=== PATIENT | female | born 1985 | race Caucasian/White ===

== ENCOUNTER → 2024-10-13 | Outpatient (CLI) | payer OTHER ==
[2024-10-13 07:27] VITALS: BP 114/69; PULSE 84; RESP 16; TEMP 97.6
--- NOTE | 2024-10-13 08:16 | P.GSCN ---
History of Present Illness Consult date: 10/13/24 Reason for Consult: Mass right breast Requesting physician: Leonora Mae History of present illness: Luli is a 39-year-old female seen in consultation for Leonora Mae mass in the right breast. She states that the lump occurred approximately 4 years ago. Initially it was painless and in 2019 began to slowly get harder. She stated that she had discussed it with her ADAPTIVE PHYSICAL EDUCATOR and was told to watch it. Within a short period of time now it has become swollen, bruised, and painful. She denied any fever, purulent drainage or swollen glands. She is breast-feeding her 3-year-old twice daily, stopped two days ago. She denied any attempts to drain or pop the lesion. She had an ultrasound done of the lump but none of her breast on 10-06-24.Showed a 1.9 x 1.2 cm round heterogeneous hypoechoic lesion with through-transmission which appeared to involve the skin surface. It was suspected this was an inflamed lesion such as a sebaceous cyst. This was categorized as a BI-RADS 3 and a repeat ultrasound in 2 months was recommended. She just finished a course of antibiotics Bactrim double strength 800 twice daily, and she received a shot of ceftriaxone in her primary care doctor's office on . Since that time the tenderness has decreased. She stopped breast feeding two days ago. She denies any fever or chills. No surgery of her breast in the past. She has not had any surgery on her bresat. No recent trauma to breast. nicotine: stopped 10 years ago, used to smoke 1/3 PPD for about 5 years Caffeine: none Chocolate: daily control pills: none Hormones: none Primary care physician 10/05/24 note reviewed Family history: Mother: Colon cancer Maternal grandmother: HPV throat cancer Hormonal history: menarche: 14 A1 age at first : 36, breast fed: yes periods regular Surgical History: Medical HIstory: none Social History: nicoetine: none alcohol: none drugs: none Review of Systems - Constitutional Denies fever, Denies weight loss - EENT Eyes: denies blurred vision Ears: deny: decreased hearing, tinnitus Ears, nose, mouth and throat: Denies dysphagia - Breasts bilateral: as per HPI - Cardiovascular Denies chest pain, Denies shortness of breath - Respiratory Denies cough, Denies 7 - Gastrointestinal Reports as per HPI - Genitourinary Genitourinary: Denies dysuria, Denies hematuria Menstruation: Reports period normal - Musculoskeletal Reports as per HPI - Integumentary Denies rash, Denies unusual bruising - Neurological Denies headaches, Denies syncope - Psychiatric Reports as per HPI - Endocrine Reports as per HPI - Hematologic/Lymphatic Denies easy bleeding, Denies easy bruising - Allergic/Immunologic Reports as per HPI Past Medical History Past Medical History: No Reported History History of Any Multi-Drug Resistant Organisms: None Reported Past Surgical History: Section Past Anesthesia/Blood Transfusion Reactions: No Reported Reaction Past Psychological History: No Psychological Hx Reported Smoking Status: Former smoker Past Alcohol Use History: None Reported Past Drug Use History: None Reported Medications and Allergies Home Medications Medication Instructions Recorded Confirmed Type L.acidoph,Paracasei, B.lactis 1 cap PO DAILY 10/13/24 10/13/24 History [Probiotic] Allergies Allergy/AdvReac Type Severity Reaction Status Date / Time No Known Allergies Allergy Unverified 10/13/24 07:23 Surgical - Exam Vital Signs Temp Pulse Resp BP Pulse Ox 97.6 F 84 16 114/69 100 10/13/24 07:24 10/13/24 07:24 10/13/24 07:24 10/13/24 07:24 10/13/24 07:24 - General moderate distress - Eyes normal ocular movement - ENT no hearing loss - Neck trachea midline - Respiratory normal respiratory effort, clear to auscultation - Cardiovascular Rhythm: regular Heart Sounds: normal: S1, S2 - Abdomen Abdomen: soft, non tender, no guarding, no rigid, no rebound - Musculoskeletal normal gait - Psychiatric oriented to time, oriented to person, oriented to place, speech is normal, memory intact Breast Exam: BRA: small sports bra inspection: Erythema/lesion right breast upper chest wall area, area of erythema measures 7cm x 4-1/2 cm palpation: right breast: Positional exam fibrocystic changes, erythematous swollen area right upper quadrant 7 cm x 4-1/2 cm fluctuant in nature superficial, no other masses or nodules of concern right axilla: No adenopathy of concern Left breast: Multi positional exam fibrocystic changes no dominant masses or nodules of concern Left axilla: No adenopathy of concern Results Probable infected sebaceous cyst right breast upper outer quadrant area Ultrasound of the area of concern is personally reviewed, consistent with a superficial lesion probable infected sebaceous cyst Assessment and Plan Assessment: Impression: Probable infected sebaceous cyst right breast upper outer quadrant Fibrocystic breast changes Recent we stopped breast-feeding Plan: I&D of area of concern right breast Continue antibiotics CC: Leonora Mae
== END ==
LOC: WWCWWP 06:58
PROVIDERS: ATTEND Surgery
DX: N60.19 Diffuse cystic mastopathy of unspecified breast (principal)
CPT/HCPCS: 87070; 87075; 87205

== ENCOUNTER → 2024-10-17 | Outpatient (CLI) | payer OTHER ==
[2024-10-17 07:53] VITALS: BP 108/72; PULSE 89; RESP 16; TEMP 98.7
--- NOTE | 2024-10-17 08:42 | P.PN ---
Subjective Progress Note Date: 10/17/24 Principal diagnosis: Abscess right breast Patient is status post I&D abscess right breast last week. She presents today to have this area evaluated. She has had no fever or chills. She has minimal drainage. The packing amount is decreased. Objective - Vital Signs Vital signs: Vital Signs Temp 98.7 F 10/17/24 07:51 Pulse 89 10/17/24 07:51 Resp 16 10/17/24 07:51 BP 108/72 10/17/24 07:51 Pulse Ox 100 10/17/24 07:51 FiO2 Intake & Output 10/16/24 10/17/24 10/17/24 18:59 06:59 18:59 Weight 55.338 kg - Constitutional General appearance: Present: cooperative - EENT Eyes: Present: EOMI ENT: Present: hearing grossly normal - Integumentary Integumentary Comment(s): Right upper chest wall evaluated. Wound packing removed, base has clean granulation tissue, no evidence of any drainage at this time. Cellulitis has decreased. Clean dressing applied. Assessment and Plan Assessment: Impression: Resolving infected sebaceous cyst Plan: Continue antibiotics Continue wound care Follow-up Wednesday Note: Cultures obtained few gram-positive cocci, no growth after 72 hours these were collected from 10-13-2024
== END ==
LOC: WWCWWP 07:45
PROVIDERS: ATTEND Surgery
DX: L72.3 Sebaceous cyst (principal); N61.1 Abscess of the breast and nipple

== ENCOUNTER → 2024-10-20 | Outpatient (CLI) | payer OTHER ==
[2024-10-20 08:00] VITALS: BP 98/66; PULSE 74; RESP 17; TEMP 98.1
--- NOTE | 2024-10-20 08:46 | P.PN ---
Subjective Progress Note Date: 10/20/24 Principal diagnosis: abscess right chest wall Leonora Mae History of present illness: Luli is a 39-year-old female seen in consultation for Leonora Leo mass in the right breast. She states that the lump occurred approximately 4 years ago. Initially it was painless and in 2019 began to slowly get harder. She stated that she had discussed it with her DANCING MASTER and was told to watch it. Within a short period of time now it has become swollen, bruised, and painful. She denied any fever, purulent drainage or swollen glands. She is breast-feeding her 3-year-old twice daily, stopped two days ago. She denied any attempts to drain or pop the lesion. She had an ultrasound done of the lump but none of her breast on 10-06-24.Showed a 1.9 x 1.2 cm round heterogeneous hypoechoic lesion with through-transmission which appeared to involve the skin surface. It was suspected this was an inflamed lesion such as a sebaceous cyst. This was categorized as a BI-RADS 3 and a repeat ultrasound in 2 months was recommended. She just finished a course of antibiotics Bactrim double strength 800 twice daily, and she received a shot of ceftriaxone in her primary care doctor's office on . Since that time the tenderness has decreased. She stopped breast feeding two days ago. She denies any fever or chills. No surgery of her breast in the past. She has not had any surgery on her breast. No recent trauma to breast. The patient on 10-13-2024 underwent incision and drainage of the area of concern on the right breast/chest wall. Pathology revealed fragments of compact keratin material with mixed inflammation, histiocytes and blood suggestive of cyst contents. The patient is no longer taking antibiotics. She has not had any fever or chills. The swelling has decreased but is still slightly swollen at the site. She was seen on 10 17 24 and the packing was changed. At this time the packing is very superficial and it appears that there may be some fullness with a cavity underneath the area where the tissue was closed on top of the cavity. nicotine: stopped 10 years ago, used to smoke 1/3 PPD for about 5 years Caffeine: none Chocolate: daily control pills: none Hormones: none Primary care physician 10/05/24 note reviewed Family history: Mother: Colon cancer Maternal grandmother: HPV throat cancer Hormonal history: menarche: 14 A1 age at first : 36, breast fed: yes periods regular Surgical History: Medical HIstory: none Social History: nicoetine: none alcohol: none drugs: none Review of Systems - Constitutional Denies fever, Denies weight loss - EENT Eyes: denies blurred vision Ears: deny: decreased hearing, tinnitus Ears, nose, mouth and throat: Denies dysphagia - Breasts bilateral: as per HPI - Cardiovascular Denies chest pain, Denies shortness of breath - Respiratory Denies cough, Denies 7 - Gastrointestinal Reports as per HPI - Genitourinary Genitourinary: Denies dysuria, Denies hematuria Menstruation: Reports period normal - Musculoskeletal Reports as per HPI - Integumentary Denies rash, Denies unusual bruising - Neurological Denies headaches, Denies syncope - Psychiatric Reports as per HPI - Endocrine Reports as per HPI - Hematologic/Lymphatic Denies easy bleeding, Denies easy bruising - Allergic/Immunologic Reports as per HPI Past Medical History Past Medical History: No Reported History History of Any Multi-Drug Resistant Organisms: None Reported Past Surgical History: Section Past Anesthesia/Blood Transfusion Reactions: No Reported Reaction Past Psychological History: No Psychological Hx Reported Smoking Status: Former smoker Past Alcohol Use History: None Reported Past Drug Use History: None Reported Medications and Allergies Home Medications Medication Instructions Recorded Confirmed Type L.acidoph,Paracasei, B.lactis 1 cap PO DAILY 10/13/24 10/13/24 History [Probiotic] Allergies Allergy/AdvReac Type Severity Reaction Status Date / Time No Known Allergies Allergy Unverified 10/13/24 07:23 Objective - Vital Signs Vital signs: Vital Signs Temp 98.1 F 10/20/24 07:58 Pulse 74 10/20/24 07:58 Resp 17 10/20/24 07:58 BP 98/66 10/20/24 07:58 Pulse Ox 100 10/20/24 07:58 FiO2 Intake & Output 10/19/24 10/20/24 10/20/24 18:59 06:59 18:59 Weight 55.338 kg - Constitutional General appearance: Present: cooperative - EENT Eyes: Present: EOMI ENT: Present: hearing grossly normal - Neck Neck: Present: normal ROM - Respiratory Respiratory: bilateral: CTA - Cardiovascular Heart sounds: normal: S1, S2 - Integumentary Integumentary: Present: normal turgor - Psychiatric Psychiatric: Present: A&O x's 3, appropriate affect, intact judgment & insight - Additional findings Additional findings: Breast Exam: BRA: small sports bra inspection: Erythema/lesion right breast upper chest wall area, area of erythema measures 7cm x 4-1/2 cm; resolved palpation: right breast: multi Positional exam fibrocystic changes, erythematous swollen area right upper quadrant 7 cm x 4-1/2 cm fluctuant in nature superficial, no other masses or nodules of concern on initial visit has markedly resolved, the area has been packed and the packing is very superficial. It is felt like there is some fluctuance deep to the area of packing and this should be evaluated Assessment and Plan Assessment: Impression: Infected sebaceous cyst right chest wall status post I&D of area Superficial packing not completely packing the cavity Plan: Wound exploration Following informed consent the area of concern was prepped using chlorhexidine. 1% lidocaine was used to anesthetize the superficial tissues in the cavity. 15 blade scalpel was inserted into the anterior roof of the cavity with expression of some additional sebum and what appeared to be the back wall of the sebaceous cyst. The wound was irrigated. The wound was packed. No other evidence of infection or inflammation was identified. The patient tolerated the procedure in stable condition Follow-up next week Patient to follow-up sooner any questions or concerns CC: Leonora Mae
--- NOTE | 2024-10-20 08:55 | P.PCN ---
Date of Procedure: 10/20/24 Preoperative Diagnosis: Abscess right chest wall Postoperative Diagnosis: Same Procedure(s) Performed: I&D abscess right chest wall Anesthesia: local Surgeon: Selam Singh Pathology: none sent Condition: stable Disposition: same day Indications for Procedure: Fullness at right chest wall upper outer quadrant area of breast where previous inflamed sebaceous cyst was drained Operative Findings: Sebum/posterior wall of cyst Description of Procedure: Following informed consent the area of concern on the right chest wall/upper breast was prepped using chlorhexidine. 1% lidocaine was used to anesthetize the roof of the cystic cavity. Using a 15 blade this area was punctured. Upon puncturing it the posterior wall and additional sebum was extruded from the contained cavity. This was probed using a hemostat. The wound was then irrigated and packed. The patient tolerated the procedure in stable condition.
== END ==
LOC: WWCWWP 07:53
PROVIDERS: ATTEND Surgery
DX: N63.10 Unspecified lump in the right breast, unspecified quadrant (principal); L08.9 Local infection of the skin and subcutaneous tissue, unspecified; L72.3 Sebaceous cyst

== ENCOUNTER → 2024-10-26 | Outpatient (CLI) | payer OTHER ==
[2024-10-26 08:44] VITALS: BP 110/74; PULSE 78; RESP 17; TEMP 98.3
--- NOTE | 2024-10-26 09:19 | P.PN ---
Subjective Progress Note Date: 10/26/24 Principal diagnosis: recheck sebaceous cyst site 10-13-24 Luli is a 39-year-old female seen in consultation for Leonora Nauruan mass in the right breast. She states that the lump occurred approximately 4 years ago. Initially it was painless and in 2019 began to slowly get harder. She stated that she had discussed it with her RELAY REPAIRER and was told to watch it. Within a short period of time now it has become swollen, bruised, and painful. She denied any fever, purulent drainage or swollen glands. She is breast-feeding her 3-year-old twice daily, stopped two days ago. She denied any attempts to drain or pop the lesion. She had an ultrasound done of the lump but none of her breast on 10-06-24.Showed a 1.9 x 1.2 cm round heterogeneous hypoechoic lesion with through-transmission which appeared to involve the skin surface. It was suspected this was an inflamed lesion such as a sebaceous cyst. This was categorized as a BI-RADS 3 and a repeat ultrasound in 2 months was recommended. She just finished a course of antibiotics Bactrim double strength 800 twice daily, and she received a shot of ceftriaxone in her primary care doctor's office on . Since that time the tenderness has decreased. She stopped breast feeding two days ago. She denies any fever or chills. No surgery of her breast in the past. She has not had any surgery on her breast. No recent trauma to breast. 10-20-34 The patient on 10-13-2024 underwent incision and drainage of the area of concern on the right breast/chest wall. Pathology revealed fragments of compact keratin material with mixed inflammation, histiocytes and blood suggestive of cyst contents. The patient is no longer taking antibiotics. She has not had any fever or chills. The swelling has decreased but is still slightly swollen at the site. She was seen on 10 17 24 and the packing was changed. At this time the packing is very superficial and it appears that there may be some fullness with a cavity underneath the area where the tissue was closed on top of the cavity. 10-26-24 At this time she is not having any fever or chills. The discomfort has decreased and the drainage is minimal. She continues to pack the area. Examination: Lungs: Clear Heart: Regular rate and rhythm Site of I&D is granulating well Impression: Patient doing well at this time Plan: Follow-up in 1 month for repeat evaluation Follow-up sooner any concerns She is leaving to go to [place] in 1 week and will be gone for approximately a week. Objective - Vital Signs Vital signs: Vital Signs Temp 98.3 F 10/26/24 08:41 Pulse 78 10/26/24 08:41 Resp 17 10/26/24 08:41 BP 110/74 10/26/24 08:41 Pulse Ox 100 10/26/24 08:41 FiO2 Intake & Output 10/25/24 10/26/24 10/26/24 18:59 06:59 18:59 Weight 55.338 kg
== END ==
LOC: WWCWWP 08:33
PROVIDERS: ATTEND Surgery
DX: N63.10 Unspecified lump in the right breast, unspecified quadrant (principal)

== ENCOUNTER → 2024-12-01 | Outpatient (CLI) | payer OTHER ==
[2024-12-01 08:49] VITALS: BP 127/90; PULSE 91; RESP 17; TEMP 97.9
--- NOTE | 2024-12-01 09:13 | P.PN ---
Subjective Progress Note Date: 12/01/24 Principal diagnosis: Cystic mass right chest wall History of Present Illness Consult date: 10/13/24 Reason for Consult: Mass right breast Requesting physician: Leonora Mae History of present illness: Luli is a 39-year-old female seen in consultation on 10-03-24 for Leonora Mae regarding a mass in the right breast/chest wall. She states that the lump occurred approximately 4 years ago. Initially it was painless and in 2019 began to slowly get harder. She stated that she had discussed it with her TRAVELING SALES REPRESENTATIVE and was told to watch it. Within a short period of time now it has become swollen, bruised, and painful. She denied any fever, purulent drainage or swollen glands. She is breast-feeding her 3-year-old twice daily, stopped two days ago. She denied any attempts to drain or pop the lesion. She had an ultrasound done of the lump but none of her breast on 10-06-24.Showed a 1.9 x 1.2 cm round heterogeneous hypoechoic lesion with through-transmission which appeared to involve the skin surface. It was suspected this was an inflamed lesion such as a sebaceous cyst. This was categorized as a BI-RADS 3 and a repeat ultrasound in 2 months was recommended. She just finished a course of antibiotics Bactrim double strength 800 twice daily, and she received a shot of ceftriaxone in her primary care doctor's office on . Since that time the tenderness has decreased. She stopped breast feeding two days prior to being seen. She denies any fever or chills. No surgery of her breast in the past. She has not had any surgery on her bresat. No recent trauma to breast. At the time she was seen she had an acutely inflamed area measuring close to 7 cm on the chest wall. An I&D of this area was performed on 10-13-2024. The pathology revealed fragments of compact keratin material with mixed inflammation and histiocytes and blood suggestive of cyst contents. The patient pack to the area and had a sense closed. However there remains residual fullness at the site and it is believed that the wall of the cystic cavity remains present. She is not complaining of fever or chills on today's examination. nicotine: stopped 10 years ago, used to smoke 1/3 PPD for about 5 years Caffeine: none Chocolate: daily control pills: none Hormones: none Primary care physician 10/05/24 note reviewed Family history: Mother: Colon cancer Maternal grandmother: HPV throat cancer Hormonal history: menarche: 14 A1 age at first : 36, breast fed: yes periods regular Surgical History: Medical HIstory: none Social History: nicoetine: none alcohol: none drugs: none Review of Systems - Constitutional Denies fever, Denies weight loss - EENT Eyes: denies blurred vision Ears: deny: decreased hearing, tinnitus Ears, nose, mouth and throat: Denies dysphagia - Breasts bilateral: as per HPI - Cardiovascular Denies chest pain, Denies shortness of breath - Respiratory Denies cough - Gastrointestinal Reports as per HPI - Genitourinary Genitourinary: Denies dysuria, Denies hematuria Menstruation: Reports period normal - Musculoskeletal Reports as per HPI - Integumentary Denies rash, Denies unusual bruising - Neurological Denies headaches, Denies syncope - Psychiatric Reports as per HPI - Endocrine Reports as per HPI - Hematologic/Lymphatic Denies easy bleeding, Denies easy bruising - Allergic/Immunologic Reports as per HPI Past Medical History Past Medical History: No Reported History History of Any Multi-Drug Resistant Organisms: None Reported Past Surgical History: Section Past Anesthesia/Blood Transfusion Reactions: No Reported Reaction Past Psychological History: No Psychological Hx Reported Smoking Status: Former smoker Past Alcohol Use History: None Reported Past Drug Use History: None Reported Medications and Allergies Home Medications Medication Instructions Recorded Confirmed Type L.acidoph,Paracasei, B.lactis 1 cap PO DAILY 10/13/24 10/13/24 History [Probiotic] Allergies Allergy/AdvReac Type Severity Reaction Status Date / Time No Known Allergies Allergy Unverified 10/13/24 07:23 Objective - Vital Signs Vital signs: Vital Signs Temp 97.9 F 12/01/24 08:46 Pulse 91 12/01/24 08:46 Resp 17 12/01/24 08:46 BP 127/90 12/01/24 08:46 Pulse Ox 100 12/01/24 08:46 FiO2 Intake & Output 11/30/24 12/01/24 12/01/24 18:59 06:59 18:59 Weight 56.699 kg - Constitutional General appearance: Present: cooperative - EENT Eyes: Present: EOMI ENT: Present: hearing grossly normal - Neck Neck: Present: normal ROM - Respiratory Respiratory: bilateral: CTA - Cardiovascular Rhythm: regular Heart sounds: normal: S1, S2 - Integumentary Integumentary: Present: normal turgor - Musculoskeletal Musculoskeletal: Present: gait normal - Psychiatric Psychiatric: Present: A&O x's 3, appropriate affect, intact judgment & insight - Additional findings Additional findings: Breast Exam: BRA: small sports bra inspection: Nodular mass right chest wall palpation: right breast: multi Positional exam fibrocystic changes, nodular structure upper right chest wall right axilla: No adenopathy of concern Left breast: Multi positional exam fibrocystic changes no dominant masses or nodules of concern Left axilla: No adenopathy of concern Assessment and Plan Assessment: Impression: Nodular mass right chest wall/status post I&D of infected cyst No active infection on today's exam Plan: Surgical resection of nodular mass/probable wall of sebaceous cyst right chest wall CC: Leonora Mae
== END ==
LOC: WWCWWP 08:32
PROVIDERS: ATTEND Surgery
DX: N63.10 Unspecified lump in the right breast, unspecified quadrant (principal)